=== PATIENT | female | born 1975 | race Caucasian/White ===

== ENCOUNTER 2021-04-19 08:22 | Emergency (ER) | payer OTHER ==
[2021-04-19 08:35] VITALS: TEMP 98.7
--- NOTE | 2021-04-19 09:01 | ED ---
URI HPI - General Chief Complaint: Upper Respiratory Infection Stated Complaint: COVID+ Time Seen by Provider: 04/19/21 08:38 Source: patient, RN notes reviewed Mode of arrival: ambulatory Limitations: no limitations - History of Present Illness Initial Comments: This is a pleasant 45-year-old female with a history of fibromyalgia and high blood pressure. She presents to the emergency department today complaining of symptoms of COVID-19 since [place]. Patient was exposed to family over the holidays and develop symptoms. Patient ended up going to urgent care about one week ago and was diagnosed with COVID-19 clinically. Patient was treated with corticosteroids but states that the symptoms are persisting. She is complaining of a headache, body aches, cough, sore throat. no changes in vision or hearing, no sore throat or difficulty with speech, no neck pain, no chest pain or shortness of breath, no abdominal pain, no nausea or vomiting, no changes in urination or bowel movements, no numbness or tingling, no extremity pain, no skin rashes or lesions. - Related Data Previous Rx's Medication Instructions Recorded Acetaminophen [Tylenol] 500 mg PO Q4-6H PRN #24 tab 04/19/21 Ibuprofen [Motrin] 600 mg PO Q8HR PRN #30 tab 04/19/21 Allergies Allergy/AdvReac Type Severity Reaction Status Date / Time No Known Allergies Allergy Verified 04/19/21 08:35 Review of Systems ROS Statement: Those systems with pertinent positive or pertinent negative responses have been documented in the HPI. ROS Other: All systems not noted in ROS Statement are negative. Past Medical History Past Medical History: Hypertension History of Any Multi-Drug Resistant Organisms: None Reported Past Surgical History: No Surgical Hx Reported Past Psychological History: No Psychological Hx Reported Smoking Status: Never smoker Past Alcohol Use History: None Reported Past Drug Use History: None Reported General Exam - General Exam Comments Initial Comments: Nontoxic appearing female in minimal distress. Patient appears to be ill but not toxic. Adequately perfused. Capillary refill less than 2 seconds. Limitations: no limitations General appearance: alert, in no apparent distress Head exam: Present: atraumatic, normocephalic, normal inspection Eye exam: Present: normal appearance, PERRL, EOMI. Absent: scleral icterus, conjunctival injection, periorbital swelling ENT exam: Present: normal exam, normal oropharynx, mucous membranes moist, TM's normal bilaterally, normal external ear exam, other (No evidence of purulent nasal discharge. Nasal passages are patent, no postnasal drainage. No tonsillar adenopathy or exudate. No sinus tenderness.) Neck exam: Present: normal inspection. Absent: tenderness, meningismus, lymphadenopathy Respiratory exam: Present: normal lung sounds bilaterally. Absent: respiratory distress, wheezes, rales, rhonchi, stridor Cardiovascular Exam: Present: regular rate, normal rhythm, normal heart sounds. Absent: systolic murmur, diastolic murmur, rubs, gallop, clicks GI/Abdominal exam: Present: soft, normal bowel sounds. Absent: distended, tenderness, guarding, rebound, rigid Extremities exam: Present: normal inspection, full ROM, normal capillary refill. Absent: tenderness, pedal edema, joint swelling, calf tenderness Back exam: Present: normal inspection Neurological exam: Present: alert, oriented X3, CN II-XII intact Psychiatric exam: Present: normal affect, normal mood Skin exam: Present: warm, dry, intact, normal color. Absent: rash Course Vital Signs 04/19/21 04/19/21 08:33 09:27 Temperature 98.7 F Pulse Rate 97 Respiratory 20 20 Rate Blood Pressure 174/75 O2 Sat by Pulse 100 Oximetry - Reevaluation(s) Reevaluation #1: 04/19/21 10:51 Patient was reevaluated is resting in the room. Vital signs stable, patient afebrile. Medical Decision Making - Medical Decision Making Differential includes secondary infection, ongoing symptoms or COVID-19, influenza, other upper respiratory infections. Think this is less likely to be bacterial related given the patient symptomology. Patient tested negative for COVID-19. Patient was stable otherwise. Did not appear to be ill or toxic. I suspect the patient has resolving COVID-19. Patient was counseled on her elevated blood pressure. [facility]old [facility] Patient was told to return here if any symptoms worsen or problems arise. I did christian counselor the patient on the course of viral disease. Of course patient could have other viral upper respiratory infection. I did not see any indication for antibiotics based on the patient's clinical presentation and findings. - Differential Diagnosis Viral versus bacterial infectious process. - Lab Data Lab Results 04/19/21 Range/Units 10:06 Coronavirus (PCR) Not Detected (Not Detectd) - Radiology Data Radiology results: report reviewed, image reviewed Disposition Clinical Impression: Upper respiratory infection, viral, Suspected COVID-19 virus infection Disposition: HOME SELF-CARE Condition: Good Instructions (If sedation given, give patient instructions): Upper Respiratory Infection (ED), Coronavirus Disease 2019 (COVID-19), Hypertension (ED) Additional Instructions: Follow-up with your regular physician as directed. Return to the ER immediately if any symptoms worsen, new symptoms arise, or any other problems develop. Follow-up with your regular doctor or the [facility] regarding monitoring of her blood pressure which was somewhat elevated today. Prescriptions: Ibuprofen [Motrin] 600 mg PO Q8HR PRN #30 tab PRN Reason: Pain Acetaminophen [Tylenol] 500 mg PO Q4-6H PRN #24 tab PRN Reason: Pain Is patient prescribed a controlled substance at d/c from ED?: No Referrals: [facility] [Primary Care Provider] - 04/23/21 Time of Disposition: 10:48
--- NOTE | 2021-04-19 10:34 | XR ---
EXAMINATION TYPE: XR chest 1V DATE OF EXAM: 04/19/2021 COMPARISON: None HISTORY: Cough TECHNIQUE: Single frontal view of the chest is obtained. FINDINGS: There is no focal air space opacity, pleural effusion, or pneumothorax seen. The cardiac silhouette size is within normal limits. The osseous structures are intact. IMPRESSION: No acute process.
[2021-04-19 10:56] VITALS: BP 139/84; PULSE 82; RESP 18
== END 2021-04-19 10:55 | disposition home or self-care (01) ==
LOC: EC 08:22
DX: J06.9 Acute upper respiratory infection, unspecified (principal); I10 Essential (primary) hypertension; Z20.822 Contact with and (suspected) exposure to COVID-19
CPT/HCPCS: 71045; 87635; 99284

== ENCOUNTER → 2021-09-11 | Outpatient (CLI) | payer OTHER ==
--- NOTE | 2021-09-11 12:00 | CONS ---
CONSULTATION DATE OF SERVICE: 09/11/2021 This 46-year-old lady has been evaluated in Sleep Center for lifelong excessive daytime sleepiness. HISTORY OF PRESENT ILLNESS/SLEEP-WAKE EVALUATION: The patient reports sleepiness since childhood. At present her sleep schedule is from 11:30 p.m. until between 10 am and noon. She has a TV set in the bedroom. She wakes up from sleep every 1-1/2 to 2 hours and uses the restroom. She has been told that she snores. No history of hypnagogic hallucinations, sleep paralysis or cataplexy. In the morning the patient wakes up tired, falling asleep during the day, worries about her sleep, has problems with concentration, depression, anxiety. She takes a nap about 2 hours after she wakes up. She usually does not feel refreshed after a nap. [place] Sleepiness Scale increased to 12. PAST MEDICAL HISTORY: Positive for hypertension, hyperlipidemia, fibromyalgia, depression, anxiety, opioid addiction in the past. 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 MEDICATIONS: Suboxone 4 mg-1 mg once a day, 25 mg once a day, hydroxyzine 25 mg three times a day, clonidine 0.1 mg up to 3 times a day, lisinopril. REVIEW OF SYSTEMS: Multiple awakenings from sleep, sleepiness during the day. Positive history of snoring. No fevers. No double vision. No recent chest pain. No shortness of breath. No abdominal pain. No bleeding episodes. No blood in the urine. No seizure episodes. SOCIAL HISTORY: Negative for smoking. Alcohol consumption occasional. FAMILY HISTORY: Arthritis, cancer, mental illness, crib . PHYSICAL EXAMINATION: GENERAL: Pleasant lady without distress. VITAL SIGNS: BP 109/58, HR 62, RR 16, height 5 feet 6-1/3 inches, weight 183 pounds, body mass index 29.2, temperature 97.6, oxygen saturation at room air 100%. HEENT: PERRLA, EOMI, evaluation of oropharynx showed tongue protrudes midline. Position of soft palate Mallampati II. NECK: Supple, no JVD. Thyroid is not palpable. LUNGS: Clear to percussion and to auscultation. Good air exchange. No wheezing or rhonchi. HEART: S1, S2 regular. No murmurs, gallops, or rubs. ABDOMEN: Soft and nontender. Bowel sounds are present. No organomegaly appreciated. EXTREMITIES: No clubbing or cyanosis. PAPERHANGER APPRENTICE: Awake, alert, and oriented X3. Cranial nerves 2 to 7 intact. There is no fasciculation or atrophy. noted. No focal deficits observed. IMPRESSION: 1. Occasional snoring, multiple episodes of awakenings from sleep every 1-1/2 hours, sleepiness; possible obstructive sleep apnea-hypopnea syndrome. 2. Differential diagnosis includes hypersomnia and narcolepsy, type 2. 3. Hypertension. 4. Hyperlipidemia. 5. Fibromyalgia. 6. History of opioid addiction in the past. 7. Depression. 8. Anxiety. 9. Status post surgical treatment for pyloric stenosis in catcher helper. 10.Status post tonsillectomy. PLAN: 1. Polysomnography for evaluation of patient's breathing during sleep with a following MSLT if the sleep study is negative for obstructive sleep apnea-hypopnea syndrome. 2. CPAP/BiPAP titration if sleep study confirms obstructive sleep apnea-hypopnea syndrome. 3. Preferable position during sleep on the side. 4. No driving if patient feels any sleepiness. 5. I will see patient for follow up visit to explain results of testing and following plan. Thank you very much for referring this patient for consultation. Sincerely, Wes Becerril MD, PhD, FAASM Diplomat of [place] [employer] Sleep Medicine Board of [place] [employer] of [employer] Medicine Air Traffic Systems Technician of [facility] [place] MMODL / IJN: [id number] /
== END | disposition home or self-care (01) ==
LOC: SLEEP 09:51
PROVIDERS: ATTEND Internal Medicine
DX: G47.33 Obstructive sleep apnea (adult) (pediatric) (principal); I10 Essential (primary) hypertension; E78.5 Hyperlipidemia, unspecified; M79.7 Fibromyalgia; F11.11 Opioid abuse, in remission; F41.9 Anxiety disorder, unspecified; F32.9 Major depressive disorder, single episode, unspecified; Z90.89 Acquired absence of other organs
CPT/HCPCS: 99211

== ENCOUNTER → 2022-01-21 | Outpatient (CLI) | payer OTHER ==
--- NOTE | 2022-01-21 15:02 | P.PN ---
Subjective DATE: 01/21/2022 FOLLOW UP VISIT. Patient returned to sleep center for follow-up visit to discuss results of sleep study and following plan. I discuss results of sleep study with patient in details. Diagnostic polysomnogram did not show any significant respiratory abnormalities during sleep, normal oxygen oxygenation during sleep. Multiple sleep latency test on the following day showed extremely short sleep latency was average 3.8 minutes counting 5 naps. If exclude first nap from countimg sleep latency will be around 2 minutes. No sleep onset REM periods have been documented. . [place] sleepiness scale is in extremely high range today of 19. MEDICATIONS:1. Suboxone 2. Clonidine 0.1 mg up to 3 times a day 3. Lisinopril 4. Hydroxyzine 25 mg 3 times a day During physical exam: GENERAL: A pleasant patient without any distress. VITAL SIGNS: BP 152/85, HR 83, RR 16 , weight 167.6, temperature 98.5, oxygen saturation at room air 99% . HEENT: PERRLA, EOMI. NECK: Supple. No JVD. LUNGS: Clear to percussion and to auscultation. Good air exchange. No wheezing or rhonchi. HEART: S1, S2 regular. ABDOMEN: Soft and nontender. EXTREMITIES: No clubbing or cyanosis. FINANCIAL OPERATIONS ANALYST: Awake, alert, and oriented x3. No focal deficit. Impressions: 1. No significant respiratory abnormalities and no significant periodic limb movements by results of polysomnogram. 2. Multiple sleep latency test confirmed pathological sleepiness. Mean sleep latency 3.8 minutes. No sleep onset REM periods have been documented. Differential diagnosis between narcolepsy type II and idiopathic hypersomnia.. 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 4. Hypertension. 5. History of opioid addiction. 6. Depression. 7. And anxiety. 8. Hyperlipidemia. 9. Fibromyalgia. 10 status post tonsillectomy 11. 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 Patient will be started on treatment with Adderall lowest dose of 5 mg at 12:30 PM and 4:30 PM. 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 2. Sleep hygiene with regular time in bed for at least 8 hours. 3. Daytime naps permitted 4. Precautions related to driving. No driving if feel any sleepiness. Patient is aware about civil and criminal liability for unsafe driving, promised to follow recommendations. 5. Follow up visit in 4-6 months or earlier if patient has any problems. Thank you very much for allowing me to participate in the management of your patient. Wes Becerril MD, PhD, FAASM. Diplomat of [place] Board [employer], Sleep Medicine Board by [place] Board of Internal Medicine Product Management Internship of [facility] [place]
--- NOTE | 2022-01-21 15:02 | P.PN ---
Subjective DATE: 01/21/2022 FOLLOW UP VISIT. Patient returned to sleep center for follow-up visit to discuss results of sleep study and following plan. I discuss results of sleep study with patient in details. Diagnostic polysomnogram did not show any significant respiratory abnormalities during sleep, normal oxygen oxygenation during sleep. Multiple sleep latency test on the following day showed extremely short sleep latency was average 3.8 minutes counting 5 naps. If exclude first nap from countimg sleep latency will be around 2 minutes. No sleep onset REM periods have been documented. . [place] sleepiness scale is in extremely high range today of 19. MEDICATIONS:1. Suboxone 2. Clonidine 0.1 mg up to 3 times a day 3. Lisinopril 4. Hydroxyzine 25 mg 3 times a day During physical exam: GENERAL: A pleasant patient without any distress. VITAL SIGNS: BP 152/85, HR 83, RR 16 , weight 167.6, temperature 98.5, oxygen saturation at room air 99% . HEENT: PERRLA, EOMI. NECK: Supple. No JVD. LUNGS: Clear to percussion and to auscultation. Good air exchange. No wheezing or rhonchi. HEART: S1, S2 regular. ABDOMEN: Soft and nontender. EXTREMITIES: No clubbing or cyanosis. GRIEF COUNSELOR: Awake, alert, and oriented x3. No focal deficit. Impressions: 1. No significant respiratory abnormalities and no significant periodic limb movements by results of polysomnogram. 2. Multiple sleep latency test confirmed pathological sleepiness. Mean sleep latency 3.8 minutes. No sleep onset REM periods have been documented. Differential diagnosis between narcolepsy type II and idiopathic hypersomnia.. 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 4. Hypertension. 5. History of opioid addiction. 6. Depression. 7. And anxiety. 8. Hyperlipidemia. 9. Fibromyalgia. 10 status post tonsillectomy 11. 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 Patient will be started on treatment with Adderall lowest dose of 5 mg at 12:30 PM and 4:30 PM. 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 2. Sleep hygiene with regular time in bed for at least 8 hours. 3. Daytime naps permitted 4. Precautions related to driving. No driving if feel any sleepiness. Patient is aware about civil and criminal liability for unsafe driving, promised to follow recommendations. 5. Follow up visit in 4-6 months or earlier if patient has any problems. Thank you very much for allowing me to participate in the management of your patient. Wes Becerril MD, PhD, FAASM. Diplomat of [place] [employer] Medicine, Sleep Medicine Board by [place] [employer] of Internal Medicine Planning Management It Specialist of [facility] [place]
== END ==
LOC: SLEEP 14:21
PROVIDERS: ATTEND Internal Medicine
DX: G47.33 Obstructive sleep apnea (adult) (pediatric) (principal); I10 Essential (primary) hypertension; F32.A Depression, unspecified; F41.9 Anxiety disorder, unspecified; M79.7 Fibromyalgia; E78.5 Hyperlipidemia, unspecified; Z90.89 Acquired absence of other organs; Z98.890 Other specified postprocedural states

== ENCOUNTER → 2022-07-22 | Outpatient (CLI) | payer OTHER ==
--- NOTE | 2022-07-22 14:50 | P.PN ---
Subjective DATE: 07/22/2022 FOLLOW UP VISIT. Patient returned to sleep center for follow-up visit related to treatment of significant excessive daytime sleepiness secondary to narcolepsy. Presently patient is on treatment with modafinil 100 mg in the morning and with this medication she feels much better, her alertness is on control. .[place] sleepiness scale is 11, which is close to normal. 9 side effects of medication. MEDICATIONS:1. Lisinopril 10 mg once a day 2. Modafinil 100 mg in the morning 3. Subutex During physical exam: GENERAL: A pleasant patient without any distress. VITAL SIGNS: BP 148/88, HR 74, RR 12, weight 164, temperature 98.4, oxygen saturation at room air 99. HEENT: PERRLA, EOMI. NECK: Supple. No JVD. LUNGS: Clear to percussion and to auscultation. Good air exchange. No wheezing or rhonchi. HEART: S1, S2 regular. ABDOMEN: Soft and nontender. EXTREMITIES: No clubbing or cyanosis. PACKER INSULATION: Awake, alert, and oriented x3. No focal deficit. Impressions: 1. Pathological sleepiness, confirmed by multiple sleep latency test. Mean sle ep latency 3.8 minutes. Most probably narcolepsy type II, although no sleep onset REM periods have been documented 2. Hypertension. 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 4. History of opioid addiction. 5. Depression. 6. anxiety. 7. Hyperlipidemia. 8. Fibromyalgia. 9. Status post tonsillectomy. 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 Patient will continue treatment with modafinil 100 mg in the morning 2. Sleep hygiene with regular time in bed for at least 8 hours. 3. Daytime naps permitted 4. Precautions related to driving. No driving if feel any sleepiness. Patient is aware about civil and criminal liability for unsafe driving, promised to follow recommendations. 5. Follow up visit in 4-6 months or earlier if patient has any problems. Thank you very much for allowing me to participate in the management of your patient. Wes Becerril MD, PhD, FAASM. Diplomat of [place] Board of Sleep Medicine, Sleep Medicine Board by [place] Board of Internal Medicine Enroller of [facility] [place]
== END ==
LOC: SLEEP 14:25
PROVIDERS: ATTEND Internal Medicine
DX: G47.33 Obstructive sleep apnea (adult) (pediatric) (principal); E78.5 Hyperlipidemia, unspecified; F11.20 Opioid dependence, uncomplicated; F32.A Depression, unspecified; F41.9 Anxiety disorder, unspecified; I10 Essential (primary) hypertension; M79.7 Fibromyalgia; Z79.899 Other long term (current) drug therapy; Z99.89 Dependence on other enabling machines and devices
CPT/HCPCS: 99212

== ENCOUNTER → 2023-04-29 | Outpatient (CLI) | payer MEDICAID ==
--- NOTE | 2023-04-29 16:53 | P.PN ---
Subjective DATE: 04/29/2023 FOLLOW UP VISIT. Patient returned to sleep center for follow-up visit related to treatment of significant excessive daytime sleepiness secondary to narcolepsy. Presently patient is on treatment with modafinil 200 mg in the morning. With this regimen most of the time patient is able to control her alertness. . [place] sleepiness scale is significantly increased today to 17, during last visit it was 11. MEDICATIONS:1. Lisinopril 10 mg once a day 2. Modafinil 200 mg in the morning During physical exam: GENERAL: A pleasant patient without any distress. VITAL SIGNS: BP 171/90, HR 75, RR 12 , weight 159.6, temperature 98.5, oxygen saturation at room air 98% . HEENT: PERRLA, EOMI. NECK: Supple. No JVD. LUNGS: Clear to percussion and to auscultation. Good air exchange. No wheezing or rhonchi. HEART: S1, S2 regular. ABDOMEN: Soft and nontender. EXTREMITIES: No clubbing or cyanosis. HIGH LEAD YARDER: Awake, alert, and oriented x3. No focal deficit. Impressions: 1. Pathological sleepiness, confirmed by multiple sleep latency test. Mean sleep latency only 3.8 minutes, although no sleep onset REM periods have been documented. Most probably narcolepsy type II 2. Hypertension. 3. History of opioid addiction. 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 5. Depression. 6. Anxiety. 7. Hyperlipidemia. 8. Fibromyalgia. 9. Status post surgical treatment of pyloric stenosis in in doffer. 10 status post tonsillectomy Plan: 1. Patient will continue treatment with modafinil 200 mg in the morning 2. Sleep hygiene with regular time in bed for at least 8 hours. 3. Daytime naps permitted 4. Precautions related to driving. No driving if feel any sleepiness. Patient is aware about civil and criminal liability for unsafe driving, promised to follow recommendations. 5. Follow up visit in 4-6 months or earlier if patient has any problems. Thank you very much for allowing me to participate in the management of your patient. Wes Becerril MD, PhD, FAASM. Diplomat of [place] Board of Sleep Medicine, Sleep Medicine Board by [place] Board of Internal Medicine Customer Advisor of [facility] [place]
== END ==
LOC: 3 N SLEEP 16:13
PROVIDERS: ATTEND Internal Medicine
DX: G47.10 Hypersomnia, unspecified (principal); I10 Essential (primary) hypertension; F32.A Depression, unspecified; F41.9 Anxiety disorder, unspecified; G47.26 Circadian rhythm sleep disorder, shift work type; E78.5 Hyperlipidemia, unspecified; M79.7 Fibromyalgia; F11.20 Opioid dependence, uncomplicated; Z79.899 Other long term (current) drug therapy
CPT/HCPCS: 99212

== ENCOUNTER → 2024-06-22 | Outpatient (CLI) | payer MEDICAID ==
[2024-06-22 16:15] VITALS: BP 148/81; PULSE 74; RESP 16; TEMP 98.6
--- NOTE | 2024-06-22 16:35 | P.PROGSL ---
Subjective DATE: 06/22/2024 FOLLOW UP VISIT. Patient returned to sleep center for follow-up visit related to treatment of significant excessive daytime sleepiness secondary to narcolepsy. Patient is on treatment with modafinil 200 mg in the morning. No new side effects from medication including headaches. . [place] sleepiness scale is increased to 20. MEDICATIONS: Modafinil 200 mg in the morning. Please see other medications below During physical exam: GENERAL: A pleasant patient without any distress. VITAL SIGNS: Please see below. HEENT: PERRLA, EOMI. NECK: Supple. No JVD. LUNGS: Clear to percussion and to auscultation. Good air exchange. No wheezing or rhonchi. HEART: S1, S2 regular. ABDOMEN: Soft and nontender. EXTREMITIES: No clubbing or cyanosis. MINING AND QUARRYING MACHINERY REPAIRER: Awake, alert, and oriented x3. No focal deficit. Impressions: 1. Hypersomnia, possibly narcolepsy type II confirmed by multiple sleep latency test with mean sleep latency 3.8 minutes but without sleep onset REM. 2. Hypertension. 3. History of opioid addiction. 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 5. History of depression. 6. History of anxiety. 7. Hyperlipidemia. 8. History of fibromyalgia. 9. 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 10 status post tonsillectomy Plan: 1. Patient will continue treatment with modafinil 200 mg in the morning. 2. Sleep hygiene with regular time in bed for at least 8 hours. 3. Daytime naps permitted 4. Precautions related to driving. No driving if feel any sleepiness. Patient is aware about civil and criminal liability for unsafe driving, promised to follow recommendations. 5. Follow up visit in 6 months or earlier if patient has any problems. Thank you very much for allowing me to participate in the management of your patient. Wes Becerril MD, PhD, FAASM. Diplomat of [place] Board of Sleep Medicine, Sleep Medicine Board by [place] [employer] of [employer] Medicine Parachute Officer of [facility] [place] Objective - Vital Signs Vital Signs: Vital Signs Temp 98.6 F 06/22/24 16:12 Pulse 74 06/22/24 16:12 Resp 16 06/22/24 16:12 BP 148/81 06/22/24 16:12 Pulse Ox 99 06/22/24 16:12 FiO2 Intake & Output 0306/22/24 06/22/24 18:59 06:59 18:59 Weight 73.539 kg Home Medications: Home Medications Medication Instructions Recorded Confirmed Type Acetaminophen [Tylenol] 500 mg PO Q4-6H PRN #24 tab 04/19/21 Rx Ibuprofen [Motrin] 600 mg PO Q8HR PRN #30 tab 04/19/21 Rx Buprenorphine-Nalox 8-2 mg Tab 8 mg PO DAILY 06/22/24 06/22/24 History [Suboxone 8-2 mg Tab] cloNIDine HCL 0.1 mg PO DAILY 06/22/24 06/22/24 History hydrOXYzine HCL [Hydroxyzine HCl] 25 mg PO DAILY 06/22/24 06/22/24 History lisinopriL [Lisinopril] 10 mg PO DAILY 06/22/24 06/22/24 History
== END ==
LOC: 3 N SLEEP 15:56
PROVIDERS: ATTEND Internal Medicine
DX: G47.10 Hypersomnia, unspecified (principal); I10 Essential (primary) hypertension; Z86.59 Personal history of other mental and behavioral disorders; E78.5 Hyperlipidemia, unspecified; Z87.39 Personal history of other diseases of the musculoskeletal system and connective tissue; Z90.89 Acquired absence of other organs
CPT/HCPCS: 99212

== ENCOUNTER → 2024-09-20 | Outpatient (CLI) | payer MEDICAID ==
--- NOTE | 2024-09-20 16:36 | MM ---
Reason for Exam: Screening (asymptomatic). Last mammogram was performed 1 year(s) and 9 month(s) ago. Patient History: Menarche at age 14. First Full-Term at age 25. Maternal aunt had breast cancer, age 65. Risk Values: Lo 5 year model risk: 0.9%. NCI Lifetime model risk: 9.2%. Prior Study Comparison: 01/01/2023 Bilateral MG 3D screening mammo w/cad, [facility]. Tissue Density: The breasts are heterogeneously dense, which may obscure small masses. Findings: Analyzed By CAD. Nodular asymmetric density far posterior central left cc view appears larger from prior. This may represent superimposition shadow but further evaluation is recommended. Otherwise, unchanged intramammary lymph node lateral posterior right breast and unchanged bilateral areas of asymmetric density. Overall Assessment: Incomplete: need additional imaging evaluation, BI-RAD 0 Management: Special View Mammogram of the left breast. to include spot 3-D CC, 3-D CC rolled, and 3-D lateral views (to include far posterior tissue). [facility] will attempt to contact patient to return for supplemental views and ultrasound if indicated. [facility], , 09/20/2024 4:33 PM. Electronically signed and approved by: Shayy Fan M.D. Radiologist
== END | disposition home or self-care (01) ==
LOC: RADMAMWWP 15:47
PROVIDERS: ATTEND Student in an Organized Health Care Education/Training Program
DX: Z12.31 Encounter for screening mammogram for malignant neoplasm of breast (principal); R92.333 Mammographic heterogeneous density, bilateral breasts; Z80.3 Family history of malignant neoplasm of breast
CPT/HCPCS: 77063; 77067